=== PATIENT | female | born 1995 | race Caucasian/White ===

== ENCOUNTER 2017-04-02 22:39 | Emergency (ER) | payer MEDICAID ==
[2017-04-02 22:39] VITALS: BMI 25.6
[2017-04-02 23:02] VITALS: TEMP 97.8; O2SAT 98
--- NOTE | 2017-04-02 23:05 | C.PDOC ---
History Of Present Illness 22 yo female come in for evaluation of Left sided flank pain developed 4-5 days ago " started after I bend down". Pt describes pain as gradual onset, localized , non-radiating, moderate, " aching", worse with movement. Pt admits, noted some frequency on urination" but also drink lots of water now". Otherwise, pt denies fever, chills, known trauma or injury, abd. pain, N/V, hematuria, vaginal irritation or discharge. Ambulate to ED for evaluation, not in any apparent distress. Time Seen by Provider: 04/02/17 23:03 Chief Complaint (Nursing): Back Pain History Per: Patient Onset/Duration Of Symptoms: Gradual Past Medical History Reviewed: Historical Data, Nursing Documentation, Vital Signs Vital Signs: Last Vital Signs Temp 97.8 F 04/02/17 22:59 Pulse 90 04/02/17 22:59 Resp 20 04/02/17 22:59 BP 135/85 04/02/17 22:59 Pulse Ox 98 04/02/17 23:27 - Medical History PMH: Anxiety, Asthma, CHF (''during ''), Depression, Deep Vein Thrombosis, Gastritis, Multiple Sclerosis Denies: Chronic Kidney Disease Surgical History: Family History: States: No Known Family Hx - Social History Hx Tobacco Use: Yes (former smoker) Hx Alcohol Use: No Hx Substance Use: Yes (Marijuana) - Immunization History Hx Tetanus Toxoid Vaccination: Yes Hx Influenza Vaccination: Yes Hx Pneumococcal Vaccination: No Review Of Systems Except As Marked, All Systems Reviewed And Found Negative. Constitutional: Negative for: Fever, Chills ENT: Negative for: Ear Discharge, Nose Discharge, Throat Pain, Throat Swelling Cardiovascular: Negative for: Chest Pain, Palpitations, Edema, Light Headedness Respiratory: Negative for: Cough, Shortness of Breath, Wheezing Gastrointestinal: Negative for: Nausea, Vomiting, Abdominal Pain, Diarrhea Genitourinary: Positive for: Frequency. Negative for: Dysuria, Incontinence, Hematuria, Vaginal Discharge, Vaginal Bleeding Musculoskeletal: Positive for: Back Pain. Negative for: Neck Pain Skin: Negative for: Rash Neurological: Negative for: Weakness, Numbness, Headache, Dizziness Physical Exam - Physical Exam Appears: Well, Non-toxic, No Acute Distress Skin: Normal Color, Warm, No Rash Eye(s): bilateral: PERRL Nose: No Flaring Oral Mucosa: Moist Throat: No Erythema, No Exudate, No Drooling Neck: Supple Chest: Symmetrical Cardiovascular: Rhythm Regular Respiratory: No Stridor, No Wheezing Gastrointestinal/Abdominal: Soft, No Distention, No Guarding Back: No CVA Tenderness, Paraspinal Tenderness (diffuse Right lumbar. No midline tenderness, no skin changes, no palpabel deformity.), Other (Right flank tenderness) Extremity: No Pedal Edema Neurological/Psych: Oriented x3, Normal Speech, Normal Motor, Normal Sensation, Normal Reflexes ED Course And Treatment O2 Sat by Pulse Oximetry: 98 Progress Note: On re-evaluation, pt is afebrile, hemodynamicaly stable. Non- toxic. Ambulatoyr in ED with stable gait. ABd: benign, (-) guarding, (-) rebound. Back: (-) CVA tenderness. Neurologicaly intact. UA results review and appears normal. Pt has clinical findings c/w flank pain. Pt advised and ref. to f/u with PMD in 2-3 days for re-eval. return to ED if any worsening or new changes. Disposition Counseled Patient/Family Regarding: Studies Performed, Diagnosis, Need For Followup, Rx Given - Disposition Referrals: Jonathon Lynch MD [Staff Provider] - Disposition: HOME/ ROUTINE Disposition Time: 23:59 Condition: STABLE Additional Instructions: Avoid heavy lifting, bending, etc for 1 week Take medication as prescribed as need for pain Follow up with PMD in 2-3 days for re-evaluation. Return to ED if any worsening or new changes. Prescriptions: traMADol [Ultram] 50 mg PO TID #7 tab Instructions: Flank Pain (ED) Forms: [employer] (Armenian) - Clinical Impression Clinical Impression: Flank pain
[2017-04-02 23:34] LABS: RBC URINE 1 /hpf (0-3); URINE BACTERIA RARE (<OCC); URINE BILIRUBIN NEGATIVE (NEGATIVE); URINE BLOOD NEGATIVE (NEGATIVE); URINE COLOR Yellow (YELLOW); URINE GLUCOSE (UA) NORMAL (Normal); URINE KETONE NEGATIVE (NEGATIVE); URINE LEUKOCYTE ESTERASE NEG Leu/uL (Negative); URINE PROTEIN NEGATIVE (NEGATIVE); URINE UROBILINOGEN NORMAL mg/dL (0.2-1.0); WBC URINE 1 /hpf (0-5)
[2017-04-03 00:21] VITALS: BP 128/88; PULSE 92; RESP 18
== END 2017-04-03 00:05 | disposition home or self-care (01) ==
LOC: C.ER 22:39
DX: R10.32 Left lower quadrant pain (principal)

== ENCOUNTER 2017-04-13 14:10 | Inpatient (IN) | payer MEDICAID ==
[2017-04-13 14:10] VITALS: BMI 25.6
[2017-04-13] MEDS ORDERED: Sodium Chloride 0.9% 1,000 ML IV ONE ×2 (14:58→17:19)
[2017-04-13] MEDS ORDERED: Sodium Chloride 0.9% 1,000 ML ONE ×3 (15:18→19:31)
[2017-04-13 15:23] LABS: BASO % 0.4 % (0.0-2.0); EOS % 0.2 % (0.0-4.0); HEMATOCRIT 41.9 % (34.0-47.0); LYMPH # 0.4 K/uL (1.0-4.3); LYMPH % 4.1 % (20.0-40.0); MEAN CELL VOLUME 84.4 fL (81.0-99.0); MEAN CORPUSCULAR HEMOGLOBIN 28.1 pg (27.0-31.0); MEAN CORPUSCULAR HGB CONC 33.3 g/dL (33.0-37.0); MEAN PLATELET VOLUME 8.4 fL (7.2-11.7); MONO # 0.5 K/uL (0.0-0.8); MONO % 4.9 % (0.0-10.0); PLATELET COUNT 226 K/uL (130-400); RED CELL DISTRIBUTION WIDTH 12.9 % (11.5-14.5); WHITE BLOOD COUNT 10.2 K/uL (4.8-10.8)
--- NOTE | 2017-04-13 15:32 | RAD ---
HISTORY: Chest pain, fever COMPARISON: Chest x-ray performed 03/13/16 TECHNIQUE: Chest, one view. FINDINGS: LUNGS: No focal consolidation. Please note that chest x-ray has limited sensitivity for the detection of pulmonary masses. PLEURA: No significant pleural effusion identified. No definite pneumothorax . CARDIOVASCULAR: The cardiomediastinal silhouette appears within normal limits of size. OSSEOUS STRUCTURES: No acute osseous abnormality identified. VISUALIZED UPPER ABDOMEN: Unremarkable. OTHER FINDINGS: None. IMPRESSION: No focal consolidation, significant pleural effusion, or definite pneumothorax identified.
[2017-04-13 15:33] LABS: CHLORIDE 103 mmol/L (98-107); POTASSIUM 3.8 mmol/L (3.6-5.2); SODIUM 142 mmol/L (132-148)
[2017-04-13 15:35] LABS: ALB/GLOB RATIO 1.2 (1.0-2.1); ALKALINE PHOSPHATASE 104 U/L (38-126); AST/SGOT 21 U/L (14-36); BILIRUBIN,TOTAL 0.6 mg/dL (0.2-1.3); BLOOD UREA NITROGEN 10 mg/dL (7-17); CARBON DIOXIDE 21 mmol/L (22-30); GFR AFRICAN-AMERICAN > 60; TOTAL PROTEIN 7.6 g/dL (6.3-8.3)
[2017-04-13 15:36] LABS: ALT/SGPT 29 U/L (9-52); CALCIUM 8.8 mg/dl (8.6-10.4); GLUCOSE,RANDOM 105 mg/dL (65-105); RBC URINE 34 /hpf (0-3); URINE BACTERIA OCC (<OCC); URINE BILIRUBIN NEGATIVE (NEGATIVE); URINE BLOOD 1+ (NEGATIVE); URINE COLOR Yellow (YELLOW); URINE GLUCOSE (UA) NORMAL (Normal); URINE KETONE NEGATIVE (NEGATIVE); URINE LEUKOCYTE ESTERASE 3+ Leu/uL (Negative); URINE PROTEIN NEGATIVE (NEGATIVE); URINE UROBILINOGEN NORMAL mg/dL (0.2-1.0); WBC URINE 194 /hpf (0-5)
[2017-04-13 15:59] LABS: NEUTROPHIL 90 % (50-75); TOTAL CELLS COUNTED 100
[2017-04-13 16:35] LABS: INR 1.2
--- NOTE | 2017-04-13 17:17 | C.PDOC ---
History Of Present Illness Pt c/o feeling ill. C/o urinary symptoms, vomiting, chest pain, low back pain. Time Seen by Provider: 04/13/17 14:46 Chief Complaint (Nursing): Medical Clearance History Per: Patient Onset/Duration Of Symptoms: Days (few) Current Symptoms Are (Timing): Still Present Severity: Moderate Additional History Per: Prior Records Past Medical History Reviewed: Historical Data, Nursing Documentation, Vital Signs Vital Signs: Last Vital Signs Temp 100.4 F H 04/13/17 15:17 Pulse 132 H 04/13/17 14:48 Resp 17 04/13/17 14:48 BP 123/87 04/13/17 14:48 Pulse Ox 97 04/13/17 14:48 - Medical History PMH: Anxiety, Asthma, CHF ('during '), Depression, Deep Vein Thrombosis , Gastritis, Multiple Sclerosis Surgical History: Family History: States: Unknown Family Hx - Social History Hx Tobacco Use: Yes (former smoker) Hx Alcohol Use: Yes Hx Substance Use: Yes - Immunization History Hx Tetanus Toxoid Vaccination: No Hx Influenza Vaccination: No Hx Pneumococcal Vaccination: No Review Of Systems Except As Marked, All Systems Reviewed And Found Negative. Constitutional: Positive for: Fever, Malaise Cardiovascular: Positive for: Chest Pain Respiratory: Negative for: Shortness of Breath, Hemoptysis Gastrointestinal: Positive for: Nausea, Vomiting Genitourinary: Positive for: Dysuria, Frequency Musculoskeletal: Positive for: Back Pain. Negative for: Neck Pain Skin: Negative for: Rash Neurological: Positive for: Headache. Negative for: Weakness, Numbness, Seizures, Altered Mental Status Physical Exam - Physical Exam Appears: Non-toxic, No Acute Distress Skin: Normal Color, Warm, Dry, No Rash Head: Atraumatic, Normacephalic Eye(s): bilateral: Normal Inspection, PERRL, EOMI Oral Mucosa: Moist Neck: Normal ROM, Supple Cardiovascular: Rhythm Regular (tachycardia) Respiratory: Normal Breath Sounds, No Accessory Muscle Use Gastrointestinal/Abdominal: Soft, Tenderness (mild suprapubic), No Guarding, No Rebound Back: No CVA Tenderness Extremity: Normal ROM Neurological/Psych: Oriented x3, Normal Motor, Normal Sensation ED Course And Treatment - Laboratory Results Result Diagrams: 04/13/17 15:20 04/13/17 15:20 Lab Interpretation: Abnormal Interpretation Of Abnormal: UTI. Left shift. Urine POC: Negative ECG: Interpreted By Me, Viewed By Me ECG Rhythm: Sinus Tachycardia, Nonspecific Changes Rate From EC O2 Sat by Pulse Oximetry: 97 Pulse Ox Interpretation: Normal - Radiology CXR: Viewed By Me, Read By Radiologist CXR Interpretation: Yes: No Acute Disease Progress - Interventions Interventions:: Observation, Intravenous fluid - Medications Administered Oral: Acetaminophen Intravenous: Antiemetic, H-2 zaira - Data Reviewed Data Reviewed: Lab, Diagnostic imaging, EKG, Old records - Patient Status Patient status: Partially improved - Continuity of Care Discussed patient case with:: Patient, ED Nurse, PMD - Patient Plan Patient Plan: Admission Disposition Discussed With : Jonathon Lynch Comment: He accepted pt on his service. Doctor Will See Patient In The: Hospital Counseled Patient/Family Regarding: Studies Performed, Diagnosis - Disposition Disposition: HOSPITALIZED Disposition Time: 17:19 Condition: FAIR - Clinical Impression Clinical Impression: Complicated urinary tract infection, Fever, Tachycardia
[2017-04-13] MEDS ORDERED: cefTRIAXone IV 1 gm in Dextros 50 ML IVPB ONE ×2 (17:20→18:06)
[2017-04-13] MEDS: Sodium Chloride 0.9% 1,000 ML IV SCH (19:32)
[2017-04-13 20:34] VITALS: RESP 20
--- NOTE | 2017-04-14 00:20 | CP.PCM.HP ---
History of Present Illness - History of Present Illness History of Present Illness: 22 Y/O WITH 2 DAYS OF FEVER, CHILLS RIGORS, DYSURIA WEAKNESS, ANOREXIA Present on Admission - Present on Admission Any Indicators Present on Admission: No History of DVT/PE: No History of Uncontrolled Diabetes: No Urinary Catheter: No Decubitus Ulcer Present: No Review of Systems - Constitutional Constitutional: Anorexia, Chills - Gastrointestinal Gastrointestinal: Abdominal Pain, Bloating - Genitourinary Genitourinary: Change in Urinary Stream, Difficulty Urinating, Urinary Urgency Past Patient History - Infectious Disease Hx of Infectious Diseases: None - Past Medical History & Family History Past Medical History?: Yes - Past Social History Smoking Status: Never Smoked - CARDIAC Hx Congestive Heart Failure: Yes ('during ') - PULMONARY Hx Asthma: Yes - NEUROLOGICAL Hx Multiple Sclerosis: Yes - HEENT Other/Comment: wears glasses - ENDOCRINE/METABOLIC Hx Endocrine Disorders: No - HEMATOLOGICAL/ONCOLOGICAL Hx Blood Disorders: Yes - INTEGUMENTARY Hx Dermatological Problems: No - MUSCULOSKELETAL/RHEUMATOLOGICAL Hx Falls: No - GASTROINTESTINAL Hx Gastritis: Yes - GENITOURINARY/GYNECOLOGICAL Hx Genitourinary Disorders: Yes Hx Urinary Tract Infection: Yes Other/Comment: Kidney Infections - PSYCHIATRIC Hx Anxiety: Yes Hx Depression: Yes Hx Substance Use: Yes - SURGICAL HISTORY Hx Surgeries: Yes Hx Section: Yes (x1 2014) - ANESTHESIA Hx Anesthesia: Yes Hx Anesthesia Reactions: No Hx Malignant Hyperthermia: No Meds Allergies/Adverse Reactions: Allergies Allergy/AdvReac Type Severity Reaction Status Date / Time cheese Allergy RASH Verified 11/11/16 22:13 Physical Exam - Constitutional Appears: Non-toxic, No Acute Distress - Head Exam Head Exam: ATRAUMATIC, NORMAL INSPECTION, NORMOCEPHALIC - ENT Exam ENT Exam: Mucous Membranes Moist, Normal Exam, Normal Oropharynx - Neck Exam Neck exam: Positive for: Normal Inspection - Respiratory Exam Respiratory Exam: Clear to Auscultation Bilateral, NORMAL BREATHING PATTERN - Cardiovascular Exam Cardiovascular Exam: REGULAR RHYTHM - GI/Abdominal Exam GI & Abdominal Exam: Normal Bowel Sounds - Rectal Exam Rectal Exam: NORMAL INSPECTION - Extremities Exam Extremities exam: Positive for: normal capillary refill, pedal pulses present - Neurological Exam Neurological exam: Alert, CN II-XII Intact, Normal Gait, Oriented x3, Reflexes Normal - Psychiatric Exam Psychiatric exam: Normal Mood Results - Vital Signs Recent Vital Signs: Last Vital Signs Temp 99.1 F 04/13/17 20:34 Pulse 107 H 04/13/17 20:34 Resp 20 04/13/17 20:34 BP 103/59 L 04/13/17 20:34 Pulse Ox 100 04/13/17 20:34 - Labs Result Diagrams: 04/13/17 15:20 04/13/17 15:20 Assessment & Plan (1) Dehydration Status: Acute (2) Complicated urinary tract infection Status: Acute
[2017-04-14] MEDS ORDERED: Tramadol 25 mg PO ONE (01:33)
[2017-04-14] MEDS: Sodium Chloride 0.9% 1,000 ML IV SCH ×4 (01:52→15:00)
[2017-04-14] MEDS: Tramadol 25 mg PO PRN ×2 (14:48→19:22)
--- NOTE | 2017-04-14 23:31 | CP.PCM.PN ---
Subjective - Date & Time of Evaluation Date of Evaluation: 04/14/17 Time of Evaluation: 20:25 - Subjective Subjective: FEELS FEVERISH, NO COUGH, NO HEADACHE Objective - Vital Signs/Intake and Output Vital Signs (last 24 hours): Temp Pulse Resp BP Pulse Ox 98.7 F 111 H 20 104/65 95 04/14/17 15:59 04/14/17 15:59 04/14/17 15:59 04/14/17 15:59 04/14/17 15:59 Intake and Output: 04/14/17 04/15/17 18:59 06:59 Intake Total 2080 1250 Balance 2080 1250 - Medications Medications: Current Medications Ceftriaxone Sodium 1 gm/ (Sodium Chloride) 100 mls @ 100 mls/hr IVPB DAILY [facility] Last Admin: 04/14/17 09:41 Dose: 100 mls/hr Sodium Chloride (Sodium Chloride 0.9%) 1,000 mls @ 100 mls/hr IV .Q10H [facility] Last Admin: 04/14/17 15:00 Dose: Not Given Pneumococcal Polyvalent Vaccine (Pneumovax 23 Vaccine) 0.5 ml IM .ONCE ONE Stop: 04/16/17 10:01 Quetiapine Fumarate (Seroquel) 25 mg PO HS [facility] Last Admin: 04/14/17 22:20 Dose: 25 mg Tramadol HCl (Ultram) 25 mg PO TID PRN PRN Reason: Pain, severe (8-10) Last Admin: 04/14/17 19:22 Dose: 25 mg - Labs Labs: PT 12.9 SECONDS (9.7-12.2) H 04/13/17 15:58 INR 1.2 04/13/17 15:58 APTT 30 SECONDS (21-34) 04/13/17 15:58 - Constitutional Appears: Non-toxic, No Acute Distress - Head Exam Head Exam: ATRAUMATIC, NORMAL INSPECTION, NORMOCEPHALIC - Eye Exam Eye Exam: EOMI, Normal appearance Pupil Exam: NORMAL ACCOMODATION - ENT Exam ENT Exam: Mucous Membranes Moist - Neck Exam Neck Exam: Normal Inspection - Respiratory Exam Respiratory Exam: Clear to Ausculation Bilateral, NORMAL BREATHING PATTERN - GI/Abdominal Exam GI & Abdominal Exam: Soft, Normal Bowel Sounds - Rectal Exam Rectal Exam: NORMAL INSPECTION Assessment and Plan (1) Dehydration Status: Resolved (2) Complicated urinary tract infection Status: Acute
[2017-04-15] MEDS: Sodium Chloride 0.9% 1,000 ML IV SCH ×3 (00:02→22:28)
[2017-04-15] MEDS: Tramadol 25 mg PO PRN ×3 (01:32→19:22)
[2017-04-15 11:02] LABS: CHLORIDE 103 mmol/L (98-107); SODIUM 139 mmol/L (132-148)
[2017-04-15 11:03] LABS: POTASSIUM 3.4 mmol/L (3.6-5.2)
[2017-04-15 11:05] LABS: BLOOD UREA NITROGEN 4 mg/dL (7-17); CARBON DIOXIDE 24 mmol/L (22-30); GFR AFRICAN-AMERICAN > 60
[2017-04-15 11:06] LABS: CALCIUM 8.2 mg/dl (8.6-10.4); GLUCOSE,RANDOM 97 mg/dL (65-105)
[2017-04-15 11:56] LABS: BASO % 0.4 % (0.0-2.0); EOS % 0.4 % (0.0-4.0); HEMATOCRIT 37.3 % (34.0-47.0); LYMPH # 1.5 K/uL (1.0-4.3); LYMPH % 18.7 % (20.0-40.0); MEAN CELL VOLUME 83.5 fL (81.0-99.0); MEAN CORPUSCULAR HEMOGLOBIN 27.9 pg (27.0-31.0); MEAN CORPUSCULAR HGB CONC 33.4 g/dL (33.0-37.0); MEAN PLATELET VOLUME 8.4 fL (7.2-11.7); MONO # 0.9 K/uL (0.0-0.8); MONO % 11.3 % (0.0-10.0); PLATELET COUNT 207 K/uL (130-400); RED CELL DISTRIBUTION WIDTH 12.8 % (11.5-14.5); WHITE BLOOD COUNT 8.2 K/uL (4.8-10.8)
[2017-04-15 12:25] LABS: NEUTROPHIL 61 % (50-75); REACTIVE LYMPHOCYTES 1 % (0-0); TOTAL CELLS COUNTED 100
[2017-04-15] MEDS ORDERED: Potassium Chloride 20 mEq ER Tab PO ONE (14:00)
[2017-04-15] MEDS: Potassium Chloride 20 mEq ER Tab PO SCH (17:37)
[2017-04-15] MEDS ORDERED: Miconazole 2% Vaginal Cream(45 gm) VG SCH ×2 (22:00)
[2017-04-16] MEDS: Sodium Chloride 0.9% 1,000 ML IV SCH ×2 (01:00→06:30)
[2017-04-16 01:13] VITALS: O2SAT 97
--- NOTE | 2017-04-16 03:04 | CP.PCM.PN ---
Subjective - Date & Time of Evaluation Date of Evaluation: 04/15/17 Time of Evaluation: 20:30 - Subjective Subjective: CC/O VAGINAL ICTH, NO FEVER Objective - Vital Signs/Intake and Output Vital Signs (last 24 hours): Temp Pulse Resp BP Pulse Ox 98.7 F 99 H 20 103/65 97 04/16/17 00:00 04/16/17 00:00 04/16/17 00:00 04/16/17 00:00 04/16/17 00:00 Intake and Output: 04/15/17 04/16/17 18:59 06:59 Intake Total 1160 1100 Balance 1160 1100 - Medications Medications: Current Medications Diphenhydramine HCl (Benadryl) 25 mg PO Q6 PRN PRN Reason: Itching / Pruritus Ceftriaxone Sodium 1 gm/ (Sodium Chloride) 100 mls @ 100 mls/hr IVPB DAILY [facility] Last Admin: 04/15/17 10:23 Dose: 100 mls/hr Sodium Chloride (Sodium Chloride 0.9%) 1,000 mls @ 100 mls/hr IV .Q10H [facility] Last Admin: 04/15/17 22:28 Dose: Not Given Miconazole Nitrate (Monistat 7 Vaginal Cream) 1 ea VG HS [facility] Stop: 04/21/17 22:01 Last Admin: 04/15/17 21:45 Dose: 1 applic Pneumococcal Polyvalent Vaccine (Pneumovax 23 Vaccine) 0.5 ml IM .ONCE ONE Stop: 04/16/17 10:01 Potassium Chloride (K-Dur 20 Meq Er Tab) 20 meq PO DAILY [facility] Last Admin: 04/15/17 17:37 Dose: 20 meq Quetiapine Fumarate (Seroquel) 25 mg PO HS [facility] Last Admin: 04/15/17 21:43 Dose: 25 mg Tramadol HCl (Ultram) 25 mg PO TID PRN PRN Reason: Pain, severe (8-10) Last Admin: 04/15/17 19:22 Dose: 25 mg - Labs Labs: 04/15/17 11:52 04/15/17 10:45 PT 12.9 SECONDS (9.7-12.2) H 04/13/17 15:58 INR 1.2 04/13/17 15:58 APTT 30 SECONDS (21-34) 04/13/17 15:58 - Constitutional Appears: Non-toxic, No Acute Distress - Head Exam Head Exam: NORMAL INSPECTION, NORMOCEPHALIC - Eye Exam Eye Exam: EOMI, Normal appearance - ENT Exam ENT Exam: Mucous Membranes Moist, Normal Exam - Respiratory Exam Respiratory Exam: Clear to Ausculation Bilateral, NORMAL BREATHING PATTERN - Cardiovascular Exam Cardiovascular Exam: REGULAR RHYTHM - GI/Abdominal Exam GI & Abdominal Exam: Soft, Normal Bowel Sounds - Extremities Exam Extremities Exam: Full ROM, Normal Capillary Refill - Neurological Exam Neurological Exam: Alert, Awake, CN II-XII Intact, Normal Gait, Oriented x3 Assessment and Plan (1) Dehydration Status: Resolved (2) Complicated urinary tract infection Status: Acute
[2017-04-16 07:20] LABS: BASO % 0.3 % (0.0-2.0); EOS % 0.8 % (0.0-4.0); HEMATOCRIT 35.5 % (34.0-47.0); MEAN CELL VOLUME 84.1 fL (81.0-99.0); MEAN CORPUSCULAR HEMOGLOBIN 28.3 pg (27.0-31.0); MEAN CORPUSCULAR HGB CONC 33.6 g/dL (33.0-37.0); MEAN PLATELET VOLUME 8.1 fL (7.2-11.7); MONO # 0.5 K/uL (0.0-0.8); MONO % 9.6 % (0.0-10.0); NRBC % 0.1 % (0.0-2.0); PLATELET COUNT 236 K/uL (130-400); RED CELL DISTRIBUTION WIDTH 12.7 % (11.5-14.5); WHITE BLOOD COUNT 5.6 K/uL (4.8-10.8)
[2017-04-16 07:34] VITALS: BP 102/66; PULSE 87; TEMP 97.8
[2017-04-16] MEDS: Tramadol 25 mg PO PRN (08:32)
[2017-04-16] MEDS: Potassium Chloride 20 mEq ER Tab PO SCH ×2 (08:33→09:07)
--- NOTE | 2017-04-16 09:36 | CARD ---
APPROVED REPORT EKG Measurement Heart [id number] <Conclusion> Sinus tachycardia Abnormal ECG
[2017-04-16] MEDS ORDERED: Pneumococcal 23-Valent Vaccine IM ONE ×2 (10:00→14:45)
[2017-04-16] MEDS ORDERED: Potassium Chloride 20 mEq ER Tab PO ONE (13:02)
[2017-04-16 13:26] LABS: BASOPHIL 1 % (0-2); NEUTROPHIL 52 % (50-75); REACTIVE LYMPHOCYTES 1 % (0-0); TOTAL CELLS COUNTED 100
[2017-04-16 16:56] LABS: URINE BILIRUBIN NEGATIVE (NEGATIVE); URINE BLOOD NEGATIVE (NEGATIVE); URINE COLOR Colorless (YELLOW); URINE GLUCOSE (UA) NORMAL (Normal); URINE KETONE NEGATIVE (NEGATIVE); URINE LEUKOCYTE ESTERASE NEG Leu/uL (Negative); URINE PROTEIN NEGATIVE (NEGATIVE); URINE UROBILINOGEN NORMAL mg/dL (0.2-1.0); WBC URINE 1 /hpf (0-5)
--- NOTE | 2017-04-16 17:14 | CP.PCM.PN ---
Subjective - Date & Time of Evaluation Date of Evaluation: 04/16/17 Time of Evaluation: 11:00 - Subjective Subjective: Pt seen an dexamined today , denies any fever, chills, abdominal pain, N/V/D, vaginal itching improved a febrile repeat u/a - negative Objective - Vital Signs/Intake and Output Vital Signs (last 24 hours): Temp Pulse Resp BP Pulse Ox 97.8 F 87 20 102/66 97 04/16/17 07:30 04/16/17 07:30 04/16/17 07:30 04/16/17 07:30 04/16/17 07:30 Intake and Output: 04/16/17 04/16/17 06:59 18:59 Intake Total 2019 500 Balance 2019 500 - Labs Labs: 04/16/17 06:35 04/15/17 10:45 PT 12.9 SECONDS (9.7-12.2) H 04/13/17 15:58 INR 1.2 04/13/17 15:58 APTT 30 SECONDS (21-34) 04/13/17 15:58 - Constitutional Appears: Well, No Acute Distress - Respiratory Exam Respiratory Exam: Clear to Ausculation Bilateral, NORMAL BREATHING PATTERN - Cardiovascular Exam Cardiovascular Exam: REGULAR RHYTHM, +S1, +S2 - GI/Abdominal Exam GI & Abdominal Exam: Soft, Normal Bowel Sounds Assessment and Plan - Assessment and Plan (Free Text) Assessment: A/P 22 yr old female admitted fro flank pain, / complicated UTI treated with rocephin an d pt responded well wbc- bands- down from 14- 6 cbc- wbc - normal urine culture- + yest - started on monostat vaginal cream repeat u/a - negative D/w Dr. Lynch, stable for discharge home today and f/u with Dr. Lynch office in 1 week discharge plan discussed with patient who understands and agrees with plan Patient instructed to returns to ED if symptoms returns
--- NOTE | 2017-04-17 01:43 | CP.PCM.DIS ---
Provider - Provider Date of Admission: 04/13/17 17:20 Attending physician: Jonathon Lynch MD Time Spent in preparation of Discharge (in minutes): 30 Diagnosis - Discharge Diagnosis (1) Dehydration Status: Resolved (2) Complicated urinary tract infection Status: Acute Hospital Course - Lab Results Lab Results: Most Recent Lab Values WBC 5.6 K/uL (4.8-10.8) 04/16/17 06:35 RBC 4.22 Mil/uL (3.80-5.20) 04/16/17 06:35 Hgb 11.9 g/dL (11.0-16.0) 04/16/17 06:35 Hct 35.5 % (34.0-47.0) 04/16/17 06:35 MCV 84.1 fL (81.0-99.0) 04/16/17 06:35 MCH 28.3 pg (27.0-31.0) 04/16/17 06:35 MCHC 33.6 g/dL (33.0-37.0) 04/16/17 06:35 RDW 12.7 % (11.5-14.5) 04/16/17 06:35 Plt Count 236 K/uL (130-400) 04/16/17 06:35 MPV 8.1 fL (7.2-11.7) 04/16/17 06:35 Neut % (Auto) 53.3 % (50.0-75.0) 04/16/17 06:35 Lymph % (Auto) 36.0 % (20.0-40.0) 04/16/17 06:35 [place] % (Auto) 9.6 % (0.0-10.0) 04/16/17 06:35 Eos % (Auto) 0.8 % (0.0-4.0) 04/16/17 06:35 Baso % (Auto) 0.3 % (0.0-2.0) 04/16/17 06:35 Neut # 3.0 K/uL (1.8-7.0) 04/16/17 06:35 Lymph # 2.0 K/uL (1.0-4.3) 04/16/17 06:35 [place] # 0.5 K/uL (0.0-0.8) 04/16/17 06:35 Eos # 0.0 K/uL (0.0-0.7) 04/16/17 06:35 Baso # 0.0 K/uL (0.0-0.2) 04/16/17 06:35 Neutrophils % (Manual) 52 % (50-75) 04/16/17 06:35 Band Neutrophils % 6 % (0-2) H 04/16/17 06:35 Lymphocytes % (Manual) 32 % (20-40) 04/16/17 06:35 Reactive Lymphs % 1 % (0-0) H 04/16/17 06:35 Monocytes % (Manual) 8 % (0-10) 04/16/17 06:35 Basophils % (Manual) 1 % (0-2) 04/16/17 06:35 Platelet Estimate Normal (NORMAL) 04/16/17 06:35 RBC Morphology Normal 04/15/17 11:52 Hypochromasia (manual) Slight 04/16/17 06:35 PT 12.9 SECONDS (9.7-12.2) H 04/13/17 15:58 INR 1.2 04/13/17 15:58 APTT 30 SECONDS (21-34) 04/13/17 15:58 D-Dimer, Quantitative 222 ng/mlDDU (0-243) 04/13/17 15:58 Sodium 139 mmol/L (132-148) 04/15/17 10:45 Potassium 3.4 mmol/L (3.6-5.2) L 04/15/17 10:45 Chloride 103 mmol/L (98-107) 04/15/17 10:45 Carbon Dioxide 24 mmol/L (22-30) 04/15/17 10:45 Anion Gap 15 (10-20) 04/15/17 10:45 BUN 4 mg/dL (7-17) L 04/15/17 10:45 Creatinine 0.6 MG/DL (0.7-1.2) L 04/15/17 10:45 Est GFR ( Amer) > 60 04/15/17 10:45 Est GFR (Non-Af Amer) > 60 04/15/17 10:45 Random Glucose 97 mg/dL (65-105) 04/15/17 10:45 Calcium 8.2 mg/dl (8.6-10.4) L 04/15/17 10:45 Total Bilirubin 0.6 mg/dL (0.2-1.3) 04/13/17 15:20 AST 21 U/L (14-36) 04/13/17 15:20 ALT 29 U/L (9-52) 04/13/17 15:20 Alkaline Phosphatase 104 U/L (38-126) 04/13/17 15:20 Troponin I < 0.0120 ng/mL (0.00-0.120) 04/13/17 15:20 Total Protein 7.6 g/dL (6.3-8.3) 04/13/17 15:20 Albumin 4.2 g/dL (3.5-5.0) 04/13/17 15:20 Globulin 3.5 gm/dL (2.2-3.9) 04/13/17 15:20 Albumin/Globulin Ratio 1.2 (1.0-2.1) 04/13/17 15:20 Lipase 81 U/L (23-300) 04/13/17 15:20 Urine Color Colorless (YELLOW) 04/16/17 16:37 Urine Clarity Clear (Clear) 04/16/17 16:37 Urine pH 8.0 (5.0-8.0) 04/16/17 16:37 Ur Specific [place] 1.008 (1.003-1.030) 04/16/17 16:37 Urine Protein Negative mg/dL (NEGATIVE) 04/16/17 16:37 Urine Glucose (UA) Normal mg/dL (Normal) 04/16/17 16:37 Urine Ketones Negative mg/dL (NEGATIVE) 04/16/17 16:37 Urine Blood Negative (NEGATIVE) 04/16/17 16:37 Urine Nitrate Negative (NEGATIVE) 04/16/17 16:37 Urine Bilirubin Negative (NEGATIVE) 04/16/17 16:37 Urine Urobilinogen Normal mg/dL (0.2-1.0) 04/16/17 16:37 Ur Leukocyte Esterase Neg [place]/uL (Negative) 04/16/17 16:37 Urine WBC (Auto) 1 /hpf (0-5) 04/16/17 16:37 Urine RBC (Auto) 34 /hpf (0-3) H 04/13/17 15:20 Ur Squamous Epith Cells < 1 /hpf (0-5) 04/16/17 16:37 Urine Bacteria Occ (<OCC) H 04/13/17 15:20 Urine HCG, Qual Negative (NEGATIVE) 04/13/17 15:20 - Hospital Course Hospital Course: ADMITTED WITH ABDOMINAL PAIN, NAUSEA WEAKNESS AND DEHYDRATION, NO FEVER Discharge Exam - Head Exam Head Exam: NORMAL INSPECTION, NORMOCEPHALIC - Eye Exam Eye Exam: EOMI, Normal appearance, PERRL Pupil Exam: NORMAL ACCOMODATION - ENT Exam ENT Exam: Mucous Membranes Moist, Normal Exam, Normal Oropharynx, TM's Normal Bilaterally - Neck Exam Neck exam: Normal Inspection - Respiratory Exam Respiratory Exam: Clear to PA & Lateral, NORMAL BREATHING PATTERN - GI/Abdominal Exam GI & Abdominal Exam: Normal Bowel Sounds, Unremarkable - Rectal Exam Rectal Exam: NORMAL INSPECTION - Exam Exam: NORMAL INSPECTION - Neurological Exam Neurological exam: Alert, CN II-XII Intact, Normal Gait, Oriented x3, Reflexes Normal - Psychiatric Exam Psychiatric exam: Normal Affect, Normal Mood - Skin Skin Exam: Intact Discharge Plan - Discharge Medications Prescriptions: Cephalexin [Keflex] 500 mg PO BID #20 capsule traMADol [Ultram] 25 mg PO BID PRN #6 tab PRN Reason: Pain, Moderate (4-7) - Follow Up Plan Condition: FAIR Disposition: HOME/ ROUTINE Instructions: Cephalexin (By mouth), Tramadol (By mouth), Urinary Tract Infection in Women (DC), Urinary Tract Infection in Men (DC), Dysuria (GEN) Additional Instructions: f/u with Dr. Lynch office in 1 week continue medication as per Med. REc
[2017-04-17] MEDS ORDERED: Pneumococcal 23-Valent Vaccine IM ONE (10:00)
== END 2017-04-16 16:22 | disposition home or self-care (01) | DRG 368 ==
LOC: C.ER 14:10 → C.9E 17:20 → C.3T 21:34
PROVIDERS: ADMIT Internal Medicine; ATTEND Internal Medicine
DX: B37.49 Other urogenital candidiasis (principal); E86.0 Dehydration; G35 Multiple sclerosis; J45.909 Unspecified asthma, uncomplicated; F41.9 Anxiety disorder, unspecified; Z87.440 Personal history of urinary (tract) infections; Z87.891 Personal history of nicotine dependence

== ENCOUNTER 2017-05-09 21:05 | Emergency (ER) | payer MEDICAID ==
[2017-05-09 21:05] VITALS: BMI 25.6
[2017-05-09 21:45] VITALS: O2SAT 99
[2017-05-09 22:21] LABS: RBC URINE 1 /hpf (0-3); TRANSITIONAL EPITHIAL < 1 /hpf (0-3); URINE BACTERIA RARE (<OCC); URINE BILIRUBIN NEGATIVE (NEGATIVE); URINE BLOOD NEGATIVE (NEGATIVE); URINE COLOR Straw (YELLOW); URINE GLUCOSE (UA) NORMAL (Normal); URINE KETONE NEGATIVE (NEGATIVE); URINE LEUKOCYTE ESTERASE NEG Leu/uL (Negative); URINE PROTEIN NEGATIVE (NEGATIVE); URINE UROBILINOGEN NORMAL mg/dL (0.2-1.0); WBC URINE 3 /hpf (0-5)
[2017-05-09] MEDS ORDERED: Sodium Chloride 0.9% 1,000 ML IV ONE (22:24)
[2017-05-09 22:40] LABS: BASO % 0.4 % (0.0-2.0); EOS # 0.1 K/uL (0.0-0.7); HEMATOCRIT 39.8 % (34.0-47.0); LYMPH # 2.1 K/uL (1.0-4.3); LYMPH % 23.3 % (20.0-40.0); MEAN CELL VOLUME 83.6 fL (81.0-99.0); MEAN CORPUSCULAR HGB CONC 33.5 g/dL (33.0-37.0); MEAN PLATELET VOLUME 8.6 fL (7.2-11.7); MONO # 0.8 K/uL (0.0-0.8); MONO % 8.7 % (0.0-10.0); RED CELL DISTRIBUTION WIDTH 13.2 % (11.5-14.5); WHITE BLOOD COUNT 8.9 K/uL (4.8-10.8)
[2017-05-09 22:55] LABS: ALB/GLOB RATIO 1.1 (1.0-2.1); ALKALINE PHOSPHATASE 104 U/L (38-126); ALT/SGPT 27 U/L (9-52); AST/SGOT 38 U/L (14-36); BILIRUBIN,TOTAL 0.7 mg/dL (0.2-1.3); BLOOD UREA NITROGEN 9 mg/dL (7-17); CALCIUM 9.5 mg/dl (8.6-10.4); CARBON DIOXIDE 24 mmol/L (22-30); CHLORIDE 106 mmol/L (98-107); GFR AFRICAN-AMERICAN > 60; GLUCOSE,RANDOM 117 mg/dL (65-105); SODIUM 144 mmol/L (132-148); TOTAL PROTEIN 8.2 g/dL (6.3-8.3)
[2017-05-09 22:56] LABS: POTASSIUM 4.6 mmol/L (3.6-5.2)
--- NOTE | 2017-05-09 23:31 | C.PDOC ---
History Of Present Illness 22 year old female presents to the ER with complaint of pelvic cramping and vaginal spotting for the past 2 weeks. Patient states she took two home tests; one of them came back positive and the other was negative. LMP was 816; denies vomiting, diarrhea, fever, or dysuria. Time Seen by Provider: 05/09/17 21:55 Chief Complaint (Nursing): Female Genitourinary History Per: Patient History/Exam Limitations: no limitations Onset/Duration Of Symptoms: Days Current Symptoms Are (Timing): Still Present Severity: Mild Quality Of Discomfort: Cramping Associated Symptoms: denies: Fever, Chills, Vomiting, Diarrhea, Urinary Symptoms Abnormal Vaginal Bleeding: Yes Past Medical History Reviewed: Historical Data, Nursing Documentation, Vital Signs Vital Signs: Last Vital Signs Temp 97.9 F 05/09/17 23:31 Pulse 98 H 05/09/17 23:31 Resp 20 05/09/17 23:31 BP 126/82 05/09/17 23:31 Pulse Ox 99 05/10/17 02:34 - Medical History PMH: Anxiety, Asthma, CHF ('during '), Depression, Deep Vein Thrombosis , Gastritis, Multiple Sclerosis, Chronic Kidney Disease Surgical History: Family History: States: No Known Family Hx - Social History Hx Tobacco Use: Yes (former smoker) Hx Alcohol Use: Yes (socially) Hx Substance Use: Yes (marijuana) - Immunization History Hx Tetanus Toxoid Vaccination: No Hx Influenza Vaccination: No Hx Pneumococcal Vaccination: No Review Of Systems Except As Marked, All Systems Reviewed And Found Negative. Constitutional: Negative for: Fever, Chills Cardiovascular: Negative for: Chest Pain Respiratory: Negative for: Shortness of Breath Gastrointestinal: Negative for: Nausea, Vomiting, Diarrhea Genitourinary: Positive for: Pelvic Pain, Other (Vaginal spotting). Negative for: Dysuria, Hematuria Physical Exam - Physical Exam Appears: Well, Non-toxic, No Acute Distress Skin: Normal Color, Warm, Dry Oral Mucosa: Moist Cardiovascular: Rhythm Regular Respiratory: Normal Breath Sounds, No Rales, No Rhonchi, No Wheezing Gastrointestinal/Abdominal: Soft, Tenderness (Mild suprapubic TTP), No Guarding , No Rebound, Other ((-) Mcburneys) Back: No CVA Tenderness Neurological/Psych: Oriented x3 ED Course And Treatment - Laboratory Results Result Diagrams: 05/09/17 22:37 05/09/17 22:37 O2 Sat by Pulse Oximetry: 99 (Room air) Pulse Ox Interpretation: Normal Progress Note: Blood work, UA, Upreg ordered and reviewed. Patient given IV NS bolus. Reevaluation Time: 23:40 Reassessment Condition: Improved (On reassessment, patient is resting comfortably and states she feels well, has no current pain. Upreg and beta quant negative, and blood work otherwise unremarkable. Patient given rx for naprosyn, and was instructed to follow up with java support engineer within 1 week. She understands she should return to [facility] if symptoms worsen.) Disposition Counseled Patient/Family Regarding: Studies Performed, Diagnosis, Need For Followup, Rx Given - Disposition Referrals: Jonathon Lynch MD [Staff Provider] - Disposition: HOME/ ROUTINE Disposition Time: 23:40 Condition: STABLE Additional Instructions: FOLLOW UP WITH YOUR RETURNED GOODS REPAIRER WITHIN 1 WEEK RETURN TO ER IF YOU HAVE ANY CONCERNING SYMPTOMS Prescriptions: Naproxen [Naprosyn Tab] 375 mg PO BID PRN #20 tab PRN Reason: pain Instructions: Naproxen (By mouth), Dysfunctional Uterine Bleeding (ED) Forms: [facility] (Thai) Print Language: CAMEROONIAN - POA Present On Arrival: None - Clinical Impression Clinical Impression: Pelvic cramping, Vaginal spotting, Irregular menses - Scribe Statement The provider has reviewed the documentation as recorded by the Scribdaniel Bañuelos All medical record entries made by the Scribe were at my direction and personally dictated by me. I have reviewed the chart and agree that the record accurately reflects my personal performance of the history, physical exam, medical decision making, and the department course for this patient. I have also personally directed, reviewed, and agree with the discharge instructions and disposition.
[2017-05-09 23:34] VITALS: BP 126/82; PULSE 98; RESP 20; TEMP 97.9
== END 2017-05-09 23:48 | disposition home or self-care (01) ==
LOC: C.ER 21:05
DX: R10.2 Pelvic and perineal pain (principal); N92.6 Irregular menstruation, unspecified
CPT/HCPCS: 80053; 81001; 84702; 84703; 85025; 86850; 86900; 96360; 99284; J7040

== ENCOUNTER 2017-07-31 23:30 | Emergency (ER) | payer MEDICAID ==
[2017-07-31 23:31] VITALS: BMI 25.6
[2017-08-01 00:22] LABS: RBC URINE < 1 /hpf (0-3); URINE BILIRUBIN NEGATIVE (NEGATIVE); URINE BLOOD NEGATIVE (NEGATIVE); URINE COLOR Straw (YELLOW); URINE GLUCOSE (UA) NORMAL (Normal); URINE KETONE NEGATIVE (NEGATIVE); URINE LEUKOCYTE ESTERASE 1+ Leu/uL (Negative); URINE PROTEIN NEGATIVE (NEGATIVE); URINE UROBILINOGEN NORMAL mg/dL (0.2-1.0); WBC URINE 13 /hpf (0-5)
--- NOTE | 2017-08-01 00:24 | C.PDOC ---
History Of Present Illness 22 year old female complains of left flank pain since yesterday associated with suprapubic pressure like pain and urinary frequency. She states her urine looks dark cloudy with foul odor, and today had blood tinge. She has history of frequent UTI most recent was 3 months ago. Denies any fever, vomiting, diarrhea , constipation, vaginal bleeding, vaginal discharge. Time Seen by Provider: 07/31/17 23:56 Chief Complaint (Nursing): Female Genitourinary History Per: Patient History/Exam Limitations: no limitations Onset/Duration Of Symptoms: Days Current Symptoms Are (Timing): Still Present Quality Of Discomfort: Pressure, "Pain" Associated Symptoms: Nausea Abnormal Vaginal Bleeding: No Last Menstral Period: 07/24 Past Medical History Reviewed: Historical Data, Nursing Documentation, Vital Signs Vital Signs: Last Vital Signs Temp 97.5 F L 08/01/17 00:48 Pulse 80 08/01/17 00:48 Resp 14 08/01/17 00:48 BP 110/70 08/01/17 00:48 Pulse Ox 98 08/01/17 00:48 - Medical History PMH: Anxiety, Asthma, CHF ('during '), Depression, Deep Vein Thrombosis , Gastritis, Multiple Sclerosis, Chronic Kidney Disease Surgical History: Family History: States: Unknown Family Hx - Social History Hx Tobacco Use: Yes (former smoker) Hx Alcohol Use: Yes (socially) Hx Substance Use: Yes (marijuana) - Immunization History Hx Tetanus Toxoid Vaccination: No Hx Influenza Vaccination: No Hx Pneumococcal Vaccination: No Review Of Systems Except As Marked, All Systems Reviewed And Found Negative. Genitourinary: Positive for: Frequency, Hematuria, Other (flank pain) Physical Exam - Physical Exam Appears: Non-toxic, No Acute Distress Skin: Warm, Dry Head: Atraumatic, Normacephalic Eye(s): bilateral: Normal Inspection, EOMI Nose: Normal Oral Mucosa: Moist Neck: Normal ROM Chest: Symmetrical Cardiovascular: Rhythm Regular, No Murmur Respiratory: Normal Breath Sounds, No Wheezing Gastrointestinal/Abdominal: Bowel Sounds, Soft, Tenderness (mild suprapubic ), No Mass, No Distention, No Guarding Back: Normal Inspection, No CVA Tenderness, No Vertebral Tenderness, No Decreased ROM, No Paraspinal Tenderness Extremity: Bilateral: Atraumatic, Normal Color And Temperature, Normal ROM Neurological/Psych: Oriented x3, Normal Speech Gait: Steady ED Course And Treatment O2 Sat by Pulse Oximetry: 100 Progress - Re-Evaluation Re-evaluation Note: 08/01/17 00:35 Patient reevaluated and is resting in bed in no distress. She has no fever and stable vital signs. No signs of renal colic or surgical pathology. Patient treated for UTI with Bactrim DS PO. Advise patient to drink fluids and follow up with PCP and urology for further evaluation. - Interventions Interventions:: Observation - Medications Administered Oral: Acetaminophen - Data Reviewed Data Reviewed: Lab, Old records - Patient Status Patient status: Mostly improved - Patient Plan Patient Plan: Discharge Disposition Counseled Patient/Family Regarding: Diagnosis, Need For Followup, Rx Given - Disposition Referrals: Jonathon Lynch MD [Staff Provider] - Disposition: HOME/ ROUTINE Disposition Time: 00:35 Condition: GOOD Additional Instructions: Take antibiotic twice daily and be sure to finish taking all of antibiotic. Drink plenty of fluids. If urine culture was performed, call back for results in 2-3 days for results to confirm antibiotic is treating UTI well. [phone]. Prescriptions: Naproxen [Naprosyn] 1 tab PO BID PRN #25 tab PRN Reason: Pain Sulfamethoxazole/Trimethoprim [Bactrim DS 800 mg-160 mg] 1 tab PO BID #14 tab Instructions: Urinary Tract Infection in Women (DC) Forms: [facility] (Arabic) - POA Present On Arrival: None - Clinical Impression Clinical Impression: UTI (urinary tract infection)
[2017-08-01] MEDS ORDERED: Tmp-Smz 800 mg-160 mg DS Tab PO STA (00:28)
[2017-08-01] MEDS ORDERED: Tmp-Smz 800 mg-160 mg DS Tab ONE (00:36)
[2017-08-01 00:49] VITALS: BP 110/70; PULSE 80; RESP 14; TEMP 97.5
[2017-08-01 04:22] VITALS: O2SAT 100
== END 2017-08-01 00:49 | disposition home or self-care (01) ==
LOC: C.ER 23:30
DX: N39.0 Urinary tract infection, site not specified (principal)

== ENCOUNTER 2017-08-09 15:01 | Emergency (ER) | payer MEDICAID ==
[2017-08-09 15:01] VITALS: BMI 25.6
[2017-08-09 15:07] VITALS: BP 106/71; PULSE 79; RESP 20; TEMP 97.7; O2SAT 99
--- NOTE | 2017-08-09 15:35 | C.PDOC ---
History Of Present Illness 22yo female, presents to ED with complaints of left sided neck pain, which she woke up with today. She reports symptoms today are similar to previous recurrent neck pain, present for the past 2 years. She reports difficulty turning her neck to the left, denies any pain upon movement to the right. She denies any numbness, tingling and states the pain is moderately severe; additionally reports pain radiates to her upper left arm. No chest pain, shortness of breath or other associated symptoms. Time Seen by Provider: 08/09/17 15:19 Chief Complaint (Nursing): Back Pain History Per: Patient History/Exam Limitations: no limitations Onset/Duration Of Symptoms: Hrs Current Symptoms Are (Timing): Still Present Quality Of Discomfort: "Pain" Severity: Moderate Previous Symptoms: Neck Pain Associated Symptoms: denies: New Weakness, New Numbness Exacerbating Factor(s): Turning Past Medical History Reviewed: Historical Data, Nursing Documentation, Vital Signs Vital Signs: Last Vital Signs Temp 97.7 F 08/09/17 15:03 Pulse 79 08/09/17 15:03 Resp 20 08/09/17 15:03 BP 106/71 08/09/17 15:03 Pulse Ox 99 08/09/17 15:38 - Medical History PMH: Anxiety, Asthma, CHF ('during '), Depression, Deep Vein Thrombosis (Left leg), Gastritis, Multiple Sclerosis, Chronic Kidney Disease Surgical History: Family History: States: No Known Family Hx, Unknown Family Hx - Social History Hx Tobacco Use: Yes (former smoker) Hx Alcohol Use: Yes (socially) Hx Substance Use: Yes (marijuana) - Immunization History Hx Tetanus Toxoid Vaccination: No Hx Influenza Vaccination: No Hx Pneumococcal Vaccination: No Review Of Systems Except As Marked, All Systems Reviewed And Found Negative. Cardiovascular: Negative for: Chest Pain Respiratory: Negative for: Shortness of Breath Musculoskeletal: Positive for: Neck Pain, Arm Pain (left upper) Physical Exam - Physical Exam Appears: Well, Non-toxic Skin: Normal Color Head: Atraumatic, Normacephalic Eye(s): bilateral: Normal Inspection Nose: Normal Throat: Normal Neck: Decreased ROM (decreased ROM to left due to pain) Cardiovascular: Rhythm Regular Respiratory: Normal Breath Sounds ED Course And Treatment O2 Sat by Pulse Oximetry: 99 (RA) Pulse Ox Interpretation: Normal Progress Note: Tramadol ordered for pain relief. Disposition Doctor Will See Patient In The: Office Counseled Patient/Family Regarding: Diagnosis, Rx Given - Disposition Disposition: HOME/ ROUTINE Disposition Time: 15:40 Condition: STABLE Prescriptions: traMADol [Ultram] 50 mg PO TID PRN #14 tab PRN Reason: Pain, Moderate (4-7) Instructions: Cervical Sprain (ED) Forms: [facility] (Upper Sorbian), General Discharge Instructions - Clinical Impression Clinical Impression: Torticollis, acute - Scribe Statement The provider has reviewed the documentation as recorded by the Molly Pugh Provider attestation: All medical record entries made by the Molly were at my direction and personally dictated by me. I have reviewed the chart and agree that the record accurately reflects my personal performance of the history, physical exam, medical decision making, and the department course for this patient. I have also personally directed, reviewed, and agree with the discharge instructions and disposition.
== END 2017-08-09 15:45 | disposition home or self-care (01) ==
LOC: C.ER 15:01
DX: M43.6 Torticollis (principal)